=== PATIENT | male | born 1995 | race Caucasian/White ===

== ENCOUNTER 2021-03-11 22:29 | Emergency (ER) | payer SELFPAY ==
[~2021-03-11] VITALS: Ht 188 cm; Wt 77.3 kg
[2021-03-11 22:44] VITALS: BP 116/64
--- NOTE | 2021-03-11 22:49 | PHYS DOC ---
Past History Past Surgical History: No Surgical History Adult General Chief Complaint Chief Complaint: DENTAL PROBLEM HPI HPI Patient is a 24-year-old female presents with right lower molar pain for 5 days, 6 out of 10, sharp in nature. Denies any pain or trouble swallowing. Denies any fevers, neck pain, chest pain, shortness of breath, abdominal pain, nausea, vomiting. States he had not seen a dentist. Review of Systems Review of Systems Constitutional: Denies fever or chills [] Eyes: Denies change in visual acuity, redness, or eye pain [] HENT: Denies nasal congestion or sore throat [] Respiratory: Denies cough or shortness of breath [] Cardiovascular: No additional information not addressed in HPI [] GI: Denies abdominal pain, nausea, vomiting, bloody stools or diarrhea [] : Denies dysuria or hematuria [] Musculoskeletal: Denies back pain or joint pain [] Integument: Denies rash or skin lesions [] Neurologic: Denies headache, focal weakness or sensory changes [] Endocrine: Denies polyuria or polydipsia [] All other systems were reviewed and found to be within normal limits, except as documented in this note. Physical Exam Physical Exam Constitutional: Well developed, well nourished, no acute distress, non-toxic appearance. [] HENT: Normocephalic, atraumatic, general poor dentition, right lower molar with probable Wendie Eyes: conjunctiva normal, no discharge. [] Neck: Normal range of motion, no tenderness, Cardiovascular:Heart rate regular rhythm, no murmur [] Lungs & Thorax: Bilateral breath sounds clear to auscultation [] Neurologic: Alert and oriented X 3, no focal deficits noted. [] Psychologic: Affect normal, judgement normal, mood normal. [] Current Patient Data Vital Signs Vital Signs Date Time Temp Pulse Resp B/P (MAP) Pulse Ox O2 Delivery O2 Flow Rate FiO2 03/11/21 22:44 97.7 76 20 116/64 98 Room Air EKG EKG [] Radiology/Procedures Radiology/Procedures [] Heart Score C/O Chest Pain: No Risk Factors: Risk Factors: DM, Current or recent (<one month) smoker, HTN, HLP, family history of CAD, obesity. Risk Scores: Risk Factors: DM, Current or recent (<one month) smoker, HTN, HLP, family history of CAD, obesity. Course & Med Decision Making Course & Med Decision Making Patient is a 24-year-old male who presents with dental pain Vital signs not concerning. Physical exam noted above. Started on amoxicillin. Given oral pain medicine. Advised on pain management at home. Given contact information for local dentist. Given return precautions to the ED. [] Dragon Disclaimer Dragon Disclaimer This electronic medical record was generated, in whole or in part, using a voice recognition dictation system. Departure Departure: Impression: Primary Impression: Pain, dental Disposition: HOME / SELF CARE / HOMELESS Condition: GOOD Referrals: PCP,FREDDY (PCP) GWENDOLYN WALLS MD Patient Instructions: Dental Pain Additional Instructions: Thank you for coming in to the emergency department tonight and in allowing us to take care of you. Please read the attached information. Please take your antibiotics as prescribed. Please use Tylenol, ibuprofen and Orajel as discussed at home for pain management. You were given resource information for local free dentist. Please call in the morning to set up appointments to discuss need for fillings versus root canal versus extraction. Please come back to the ED with new or concerning symptoms as discussed. Scripts Amoxicillin (AMOXICILLIN) 500 Mg Capsule 1 CAP PO BID for 10, #20 CAP Prov: CELSA MENENDEZ MD 03/11/21 CELSA MENENDEZ MD Mar 11, 2021 22:49
[2021-03-11] MEDS ORDERED: AMOX500C PO (22:53)
[2021-03-11] MEDS ORDERED: AMOXICILLIN 250 MG CAPSULE PO ONE (23:00)
[2021-03-11] MEDS ORDERED: oxyCODONE/APAP 5/325 1 TAB TABLET PO ONE (23:00)
[2021-03-11] MEDS ORDERED: IBUPROFEN 600 MG TABLET. PO ONE (23:00)
== END 2021-03-11 23:11 | disposition home or self-care (01) ==
LOC: ER 22:29
DX: K08.89 Other specified disorders of teeth and supporting structures (principal)
CPT/HCPCS: 99284